=== PATIENT | male | born 1975 | race Caucasian/White ===

== ENCOUNTER → 2019-11-07 | Outpatient (CLI) | payer BC, OTHER | LOC: LAB 06:04 | PROVIDERS: ATTEND Emergency Medicine | DX: R06.02 Shortness of breath (principal); R50.9 Fever, unspecified; R05 Cough; R52 Pain, unspecified | CPT/HCPCS: 87430; 87635; 87804 ==

== ENCOUNTER → 2020-11-24 | Outpatient (CLI) | payer OTHER | LOC: LAB 06:02 | PROVIDERS: ATTEND Family Medicine | DX: Z01.89 Encounter for other specified special examinations (principal); W46.1XXA Contact with contaminated hypodermic needle, initial encounter | CPT/HCPCS: 36415; 86703 ==

== ENCOUNTER → 2020-11-24 | Outpatient (CLI) | payer OTHER | LOC: LABNPT 07:08 | DX: Z01.89 Encounter for other specified special examinations (principal) | CPT/HCPCS: 87522 ==

== ENCOUNTER 2021-08-16 14:55 | Emergency (ER) | payer OTHER ==
[~2021-08-16] VITALS: Ht 193 cm; Wt 88.4 kg
[2021-08-16 15:11] LABS: BASOPHILS # (AUTO) 0.1 10^3/uL (0.0-0.1); BASOPHILS % (AUTO) 1 % (0-10); EOSINOPHILS # (AUTO) 0.1 10^3/uL (0.0-0.3); EOSINOPHILS % (AUTO) 2 % (0-10); HEMATOCRIT 46 % (40-54); HEMOGLOBIN 16.1 g/dL (13.3-17.7); LYMPHOCYTES # (AUTO) 1.6 10^3/uL (1.0-4.0); LYMPHOCYTES % (AUTO) 28 % (12-44); MEAN CORPUSCULAR HEMOGLOBIN 31 pg (25-34); MEAN CORPUSCULAR HGB CONC 35 g/dL (32-36); MEAN CORPUSCULAR VOLUME 88 fL (80-99); MONOCYTES # (AUTO) 0.4 10^3/uL (0.0-1.0); MONOCYTES % (AUTO) 8 % (0-12); NEUTROPHILS # (AUTO) 3.4 10^3/uL (1.8-7.8); NEUTROPHILS % (AUTO) 61 % (42-75); PLATELET COUNT 259 10^3/uL (130-400); WHITE BLOOD COUNT 5.6 10^3/uL (4.3-11.0)
--- NOTE | 2021-08-16 15:11 | ED Cardiac General ---
History of Present Illness General Chief Complaint: Cardiac/General Problems Stated Complaint: AFIB Source: patient Exam Limitations: no limitations History of Present Illness Date Seen by Provider: Aug 16, 2021 Time Seen by Provider: 14:50 Initial Comments Patient to the ER by private conveyance chief complaint is having palpitations and feeling off for the past half hour. No chest pain, cough, shortness of breath, fevers or chills. He has had palpitations for decades. Few weeks ago he started Adderall for ADHD. He just took his dose about 2 hours ago and then ate fajitas and Diet Coke. No cardiac history. No valvular history. He had a sibling with stroke in her 30s. No diabetes, hypertension, hyperlipidemia, CHF, hypothyroidism etc. Allergies and Home Medications Allergies Coded Allergies: prochlorperazine (Verified Adverse Reaction, Unknown, 08/16/21) "loses mind" Patient Home Medication List Home Medication List Reviewed: Yes Review of Systems Review of Systems Constitutional: No chills, No diaphoresis EENTM: No Blurred Vision, No Double Vision Respiratory: Denies Cough, Denies Shortness of Air Cardiovascular: Denies Chest Pain, Denies Lightheadedness Gastrointestinal: Denies Constipated, Denies Diarrhea, Denies Nausea Genitourinary: Denies Discharge, Denies Drainage Musculoskeletal: No back pain, No joint pain All Other Systems Reviewed Negative Unless Noted: Yes Past Jykwysz-Brtcij-Wqhkod Hx Patient Social History Tobacco Use?: No Use of E-Cig and/or Vaping dev: No Substance use?: No Alcohol Use?: No Physical Exam Vital Signs Vital Signs - First Documented 08/16/21 14:55 Pulse 152 Resp 20 B/P (MAP) 133/83 (100) Pulse Ox 98 O2 Delivery Room Air Capillary Refill : Height, Weight, BMI Height: '" Weight: lbs. oz. kg; BMI Method: General Appearance: No Apparent Distress, WD/WN HEENT: PERRL/EOMI, Pharynx Normal, Moist Mucous Membranes Neck: Full Range of Motion, Normal Inspection Respiratory: Lungs Clear, Normal Breath Sounds, No Accessory Muscle Use, No Respiratory Distress Cardiovascular: Regular Rate, Rhythm, No Edema, Normal Peripheral Pulses, Tachycardia Gastrointestinal: Normal Bowel Sounds, Non Tender, Soft Neurologic/Psychiatric: Alert, Oriented x3, No Motor/Sensory Deficits Skin: Normal Color, Warm/Dry Progress/Results/Core Measures Results/Orders Lab Results Laboratory Tests Test 08/16/21 15:00 Range/Units White Blood Count 5.6 4.3-11.0 10^3/uL Red Blood Count 5.28 4.30-5.52 10^6/uL Hemoglobin 16.1 13.3-17.7 g/dL Hematocrit 46 40-54 % Mean Corpuscular Volume 88 80-99 fL Mean Corpuscular Hemoglobin 31 25-34 pg Mean Corpuscular Hemoglobin Concent 35 32-36 g/dL Red Cell Distribution Width 11.9 10.0-14.5 % Platelet Count 259 130-400 10^3/uL Mean Platelet Volume 10.0 9.0-12.2 fL Immature Granulocyte % (Auto) 0 % Neutrophils (%) (Auto) 61 42-75 % Lymphocytes (%) (Auto) 28 12-44 % Monocytes (%) (Auto) 8 0-12 % Eosinophils (%) (Auto) 2 0-10 % Basophils (%) (Auto) 1 0-10 % Neutrophils # (Auto) 3.4 1.8-7.8 10^3/uL Lymphocytes # (Auto) 1.6 1.0-4.0 10^3/uL Monocytes # (Auto) 0.4 0.0-1.0 10^3/uL Eosinophils # (Auto) 0.1 0.0-0.3 10^3/uL Basophils # (Auto) 0.1 0.0-0.1 10^3/uL Immature Granulocyte # (Auto) 0.0 0.0-0.1 10^3/uL Prothrombin Time 12.7 12.2-14.7 SEC INR Comment 0.9 0.8-1.4 Sodium Level 139 135-145 MMOL/L Potassium Level 3.8 3.6-5.0 MMOL/L Chloride Level 103 98-107 MMOL/L Carbon Dioxide Level 25 21-32 MMOL/L Anion Gap 11 5-14 MMOL/L Blood Urea Nitrogen 11 7-18 MG/DL Creatinine 1.06 0.60-1.30 MG/DL Estimat Glomerular Filtration Rate 76 BUN/Creatinine Ratio 10 Glucose Level 81 70-105 MG/DL Calcium Level 9.4 8.5-10.1 MG/DL Corrected Calcium 9.1 8.5-10.1 MG/DL Magnesium Level 2.1 1.6-2.4 MG/DL Total Bilirubin 0.6 0.1-1.0 MG/DL Aspartate Amino Transf (AST/SGOT) 23 5-34 U/L Alanine Aminotransferase (ALT/SGPT) 20 0-55 U/L Alkaline Phosphatase 77 40-136 U/L Troponin I < 0.028 <0.028 NG/ML Total Protein 8.0 6.4-8.2 GM/DL Albumin 4.4 3.2-4.5 GM/DL Thyroid Stimulating Hormone (TSH) 2.48 0.35-4.94 UIU/ML My Orders Orders - GARRICK LTITLE Ekg Tracing (08/16/21 15:03) Continuous Ekg Monitoring (08/16/21 15:03) Cbc With Automated Diff (08/16/21 15:03) Comprehensive Metabolic Panel (08/16/21 15:03) Troponin I [place] (08/16/21 15:03) Thyroid Stimulating Hormone (08/16/21 15:03) Ekg Tracing (08/16/21 15:03) Aspirin Chewable Tablet (Baby Aspirin Ch (08/16/21 15:15) Diltiazem Cd 24 Hr Capsule (Cardizem Cd (08/16/21 15:15) Magnesium (08/16/21 15:03) Protime With Inr (08/16/21 15:03) Chest 1 View, Ap/Pa Only (08/16/21 15:12) Medications Given in ED Current Medications Medications Dose Ordered Sig/Gilma Route Start Time Stop Time Status Last Admin Dose Admin Aspirin 324 mg ONCE ONCE PO 08/16/21 15:15 08/16/21 15:16 DC 08/16/21 15:16 324 MG Diltiazem HCl 240 mg ONCE ONCE PO 08/16/21 15:15 08/16/21 15:16 DC 08/16/21 15:16 240 MG Vital Signs/I&O 08/16/21 14:55 Pulse 152 Resp 20 B/P (MAP) 133/83 (100) Pulse Ox 98 O2 Delivery Room Air Progress Progress Note : Time: 15:10 Progress Note Patient spontaneously converted into a sinus rhythm while we are in the room as we got a second EKG. [id number] score of 0 points. We will put him on aspirin and give him some Cardizem to 40 mg now and 120 mg daily and have him follow-up with cardiology of his choice. Initial ECG Impression Date: Aug 16, 2021 Initial ECG Impression Time: 14:56 Initial ECG Rate: 148 Initial ECG Rhythm: A Fib/Flutter Initial ECG Intervals: QT (489) Initial ECG Impression: Normal, Nonspecific Changes Initial ECG Comparisson: No Previous ECG Available Comment Atrial flutter with rapid ventricular response. No clinically relevant ST changes EKG : EKG Time: 14:58 Rate: 77 Rhythm: Normal Sinus Intervals: Normal ECG Comparisson: Changed ECG Impression: Normal Comment Normal sinus rhythm without clinically relevant ST elevation or depression. Diagnostic Imaging Diagonstic Imaging: Xray Plain Films/CT/US/NM/MRI: chest Comments [facility] [place], [place] NAME: [facility] REC#: [id number] PT STATUS: REG ER : 1975 PHYSICIAN: GARRICK LITTLE MD ADMIT DATE: 08/16/21/ER Signed Date of Exam:08/16/21 CHEST 1 VIEW, AP/PA ONLY INDICATION: Palpitations. COMPARISON: None available. FINDINGS: The lungs appear clear without focal infiltrate or consolidation. There are no findings of an effusion. There is no evidence of a pneumothorax. Heart size and mediastinal contours appear appropriate. Pulmonary vascularity appears within normal limits. There is no acute or suspicious osseous abnormality demonstrated. IMPRESSION: No radiographic evidence of an acute cardiopulmonary process. Dictated by: Dictated on workstation # [id number] Dict: 08/16/21 1527 Trans: 08/16/21 1528 [facility] [id number] Interpreted by: SHA AMEZQUITA MD Electronically signed by: SHA AMEZQUITA MD 08/16/21 1528 Reviewed: Reviewed by Me Departure Impression Primary Impression: Atrial fibrillation with rapid ventricular response Disposition: 01 HOME, SELF-CARE Condition: Stable Departure-Patient Inst. Decision time for Depature: 15:58 Referrals: RODNEY ALLEN MD (PCP/Family) Primary Care Physician CHELSEA MAHONEY MD Patient Instructions: Atrial Fibrillation (DC) Add. Discharge Instructions: Aspirin 81 mg daily. Follow-up in the next 1 to 2 weeks with software sales consultant of your choice. Drink plenty of fluids. Discontinue amphetamines. Return to the ER for significantly worsening symptoms such as chest pain. Cardizem 120 mg daily as needed for rapid ventricular response. All discharge instructions reviewed with patient and/or family. Voiced understanding. Scripts Diltiazem HCl (Cardizem Cd) 120 Mg Cap.er.24h 120 MG PO DAILY for 30 Days, #30 CAP 0 Refills Prov: GARRICK LITTLE 08/16/21 Aspirin (Aspirin) 81 Mg Tab.chew 81 MG PO DAILY for 90 Days, #90 TAB 0 Refills Prov: GARRICK LITTLE 08/16/21 Copy Copies To 1: CHELSEA MAHONEY MD, TITUS J Aug 16, 2021 15:11
[2021-08-16] MEDS ORDERED: ASPIRIN 81 MG CHEW (CHILDREN'S ASA) PO ONE (15:15)
[2021-08-16 15:17] LABS: ALBUMIN 4.4 GM/DL (3.2-4.5)
[2021-08-16 15:18] LABS: CHLORIDE 103 MMOL/L (98-107); POTASSIUM 3.8 MMOL/L (3.6-5.0); SODIUM 139 MMOL/L (135-145)
[2021-08-16 15:19] LABS: CALCIUM 9.4 MG/DL (8.5-10.1)
[2021-08-16 15:20] LABS: GLUCOSE 81 MG/DL (70-105)
[2021-08-16 15:21] LABS: CARBON DIOXIDE 25 MMOL/L (21-32)
[2021-08-16 15:22] LABS: BILIRUBIN,TOTAL 0.6 MG/DL (0.1-1.0)
[2021-08-16 15:24] LABS: ALKALINE PHOSPHATASE 77 U/L (40-136); CREATININE SERUM 1.06 MG/DL (0.60-1.30); GFR ESTIMATED 76
[2021-08-16 15:25] LABS: BUN/CREATININE RATIO 10
[2021-08-16 15:26] LABS: MAGNESIUM 2.1 MG/DL (1.6-2.4)
[2021-08-16 15:27] LABS: ALANINE AMINOTRANSFERASE 20 U/L (0-55)
[2021-08-16 15:28] LABS: INR 0.9 (0.8-1.4); PROTHROMBIN TIME PATIENT 12.7 SEC (12.2-14.7)
--- NOTE | 2021-08-16 15:29 | Diagnostic Imaging Report ---
INDICATION: Palpitations. COMPARISON: None available. FINDINGS: The lungs appear clear without focal infiltrate or consolidation. There are no findings of an effusion. There is no evidence of a pneumothorax. Heart size and mediastinal contours appear appropriate. Pulmonary vascularity appears within normal limits. There is no acute or suspicious osseous abnormality demonstrated. IMPRESSION: No radiographic evidence of an acute cardiopulmonary process. Dictated by: Dictated on workstation # [id number]
[2021-08-16] MEDS ORDERED: ASPI-999 PO (16:01)
[2021-08-16] MEDS ORDERED: DILT120C82 PO (16:01)
[2021-08-16 16:23] VITALS: BP 133/87
== END 2021-08-16 16:24 | disposition home or self-care (01) ==
LOC: EDUNIT# 14:56 → ER 14:58
DX: I48.91 Unspecified atrial fibrillation (principal); F90.9 Attention-deficit hyperactivity disorder, unspecified type; Z79.899 Other long term (current) drug therapy
CPT/HCPCS: 36415; 71045; 80053; 83735; 84443; 84484; 85025; 85610; 93005

== ENCOUNTER → 2021-09-14 | Outpatient (CLI) | payer OTHER ==
[~2021-09-14] MED LIST: ASPI-999 PO; DILT120C82 PO
== END ==
LOC: LAB 00:03
PROVIDERS: ATTEND Family Medicine
DX: R51.9 Headache, unspecified (principal); R11.0 Nausea
CPT/HCPCS: 87635; 87804

== ENCOUNTER → 2021-11-08 | Outpatient (CLI) | payer OTHER | LOC: CARD 10:45 | PROVIDERS: ATTEND Internal Medicine Cardiovascular Disease | DX: I10 Essential (primary) hypertension (principal); I25.110 Atherosclerotic heart disease of native coronary artery with unstable angina pectoris; I48.92 Unspecified atrial flutter | CPT/HCPCS: 93306 ==

== ENCOUNTER → 2021-11-08 | Outpatient (CLI) | payer OTHER ==
[2021-11-08 10:47] LABS: CHOLESTEROL 150 MG/DL (< 200); HDL CHOLESTEROL 43 MG/DL (40-60); TRIGLYCERIDES 75 MG/DL (<150); VLDL CHOLESTEROL 15 MG/DL (5-40)
== END ==
LOC: LAB 10:03
PROVIDERS: ATTEND Internal Medicine Cardiovascular Disease
DX: E78.2 Mixed hyperlipidemia (principal)
CPT/HCPCS: 36415; 80061

== ENCOUNTER → 2021-11-29 | Outpatient (CLI) | payer OTHER ==
--- NOTE | 2021-11-29 07:30 | Diagnostic Imaging Report ---
HAND, LEFT, 3 VIEWS INDICATION: Left hand injury COMPARISON: None available. TECHNIQUE: 3 views of left hand FINDINGS: No fracture. Alignment is normal. No osseous erosions. No radiopaque foreign body. No features of avascular necrosis in the lunate. No cartilage calcifications. IMPRESSION: No acute osseous abnormality in the left hand. Dictated by: Dictated on workstation # [id number]
== END ==
LOC: RAD 06:16
PROVIDERS: ATTEND Emergency Medicine
DX: S69.92XA Unspecified injury of left wrist, hand and finger(s), initial encounter (principal); X58.XXXA Exposure to other specified factors, initial encounter
CPT/HCPCS: 73130

== ENCOUNTER → 2021-12-04 | Outpatient (CLI) | payer OTHER ==
[~2021-12-04] VITALS: Ht 193 cm; Wt 88.0 kg
[~2021-12-04] MED LIST changes: +CATHETER FLUSH 10 ML SYR IVP PRN
[2021-12-04 09:28] VITALS: BP 132/90
[2021-12-04 09:38] VITALS: BP 160/79
--- NOTE | 2021-12-04 12:40 | Cardiology Stress Test Report ---
Stress Test Report Date of Procedure/Referring: Date of Procedure: Dec 04, 2021 PCP Chelsea Dover MD Admitting Physician Laura Fajardo MD Indications: Palp Baseline Heart Rate: 65 Baseline Blood Pressure: Blood Pressure Systolic: 160 Blood Pressure Diastolic: 79 Vital Signs Date Time Temp Pulse Resp B/P (MAP) Pulse Ox O2 Delivery O2 Flow Rate FiO2 12/04/21 09:28 81 17 132/90 (104) Baseline Vital Signs Vital Signs Date Time Temp Pulse Resp B/P (MAP) Pulse Ox O2 Delivery O2 Flow Rate FiO2 12/04/21 09:28 81 17 132/90 (104) Baseline EKG: Baseline EKG: NSR Summary: After explaining the procedure and details to the patient, he signed the consent and was brought to the stress nuclear laboratory. Patient exercised on standard Tj protocol, EKG, heart rate and blood pressure were monitored continuously, resting and stress doses of radio tracer were injected, imaging was acquired and reviewed in the short axis, horizontal long axis and vertical long axis views Patient was able to exercise for a total of 11 minutes on Tj protocol, METs 12.1 Maximum heart rate 170 Maximum blood pressure 160/79 Stress EKG, Minimal nondiagnostic changes Recovery EKG, Return to baseline TID: 0.88 SSS: 1 SDS: 1 EF: 56 Conclusion: 1. Excellent exercise tolerance for a total of 11 minutes on a standard Tj protocol, 12.1 METS achieving 96% of maximal expected heart rate 2. Appropriate heart rate and blood pressure response to exercise return to baseline during recovery 3. No arrhythmia was detected during stress test 4. Minimal EKG changes with exercise return to baseline during recovery 5. No significant ischemia or infarction on SPECT images 6. Normal left ventricular size, ejection fraction 56% CHELSEA DOVER MD Dec 04, 2021 12:40
== END ==
LOC: CARD 07:30
PROVIDERS: ATTEND Internal Medicine Cardiovascular Disease
DX: I25.10 Atherosclerotic heart disease of native coronary artery without angina pectoris (principal); I10 Essential (primary) hypertension
CPT/HCPCS: 78452; 93017; A9502

== ENCOUNTER 2022-08-06 11:22 | Outpatient (CLI) | payer OTHER ==
[~2022-08-06] VITALS: Ht 193 cm; Wt 88.6 kg
[~2022-08-06 11:22] MED LIST changes: -CATHETER FLUSH 10 ML SYR IVP PRN
[2022-08-06] MEDS ORDERED: AMPH15CA5 PO (11:35)
[2022-08-06] MEDS ORDERED: DEXT5TAB19 PO (11:35)
[2022-08-06] MEDS ORDERED: FLUT9.9S NS (11:35)
== END 2022-08-06 11:36 | disposition home or self-care (01) ==
LOC: PREOP 11:22
PROVIDERS: ATTEND Surgery
DX: Z01.818 Encounter for other preprocedural examination (principal)

== ENCOUNTER 2022-08-15 11:17 | Day surgery (SDC) | payer OTHER ==
[~2022-08-15] VITALS: Ht 193 cm; Wt 88.6 kg
[~2022-08-15 11:17] MED LIST changes: +AMPH15CA5 PO; +DEXT5TAB19 PO; +FLUT9.9S NS
[2022-08-15] MEDS ORDERED: LACTATED RINGERS 1,000 ML IV STA (11:20)
[2022-08-15 11:25] VITALS: BP 131/86
[2022-08-15] MEDS ORDERED: PROPOFOL INJECTION 0 ML IV ONE (11:44)
[2022-08-15] MEDS ORDERED: PROPOFOL INJECTION 50 ML IV ONE (12:28)
[2022-08-15] MEDS ORDERED: MIDAZOLAM 2 MG/2 ML (VERSED) VIAL ONE (12:28)
[2022-08-15 13:05] VITALS: BP 101/65
--- NOTE | 2022-08-15 13:07 | Discharge Inst-Simple/Standard ---
Discharge Inst-Standard Patient Instructions/Follow Up Plan of Care/Instructions/FU: Please follow up with Dr. Tubbs in 5 years. If any issues before then, please be seen at that time. Activity as Tolerated: Yes Discharge Diet: Regular Diet VALERIA TUBBS DO Aug 15, 2022 13:07
[2022-08-15 13:10] VITALS: BP 120/88
[2022-08-15 13:15] VITALS: BP 119/76
[2022-08-15 13:30] VITALS: BP 126/86
--- NOTE | 2022-08-15 14:00 | Anesthesia-General Post-Op ---
MAC Patient Condition Mental Status/LOC: Same as Preop Cardiovascular: Satisfactory Nausea/Vomiting: Absent Respiratory: Satisfactory Pain: Controlled Complications: Absent Post Op Complications Complications None Follow Up Care/Instructions Patient Instructions None needed. Anesthesiology Discharge Order Discharge Order Patient is doing well, no complaints, stable vital signs, no apparent adverse anesthesia problems. No complications reported per nursing. KRISTY JEAN CRNA Aug 15, 2022 14:00
--- NOTE | 2022-08-16 01:00 | OPERATIVE REPORT ---
DATE OF SERVICE: 08/15/2022 PREOPERATIVE DIAGNOSES: History of rectal polyp, family history of colon cancer. POSTOPERATIVE DIAGNOSIS: Normal colon. PROCEDURE: Colonoscopy. SURGEON: Valeria Tubbs DO ANESTHESIA: Per PATIENT CARE. ESTIMATED BLOOD LOSS: None. COMPLICATIONS: None. INDICATIONS: The patient is a 47-year-old male, needing colonoscopy, history of colon polyps and family history. He understands the risks and benefits of the procedure and wishes to proceed. Consent was signed and in chart. DESCRIPTION OF PROCEDURE: The patient was taken to endoscopy suite, placed in left lateral recumbent position. Timeout was performed. Digital rectal exam was performed. No palpable polyps, masses, ulcerations. Scope was inserted into the rectum and advanced all the way to the cecum with minimal difficulty. Prep was adequate. Scope was then slowly retracted back. No polyps, masses, ulcerations in cecum, ascending, transverse, descending and sigmoid colon. Once in the rectum, scope was retroflexed, noting no other pathology. Scope was returned to its normal position and slowly withdrawn until completely removed. The patient tolerated the procedure well without any complications and taken to recovery room in stable condition. RECOMMENDATIONS: The patient will need repeat colonoscopy in 5 years, any issues before that be seen at that time. Job ID: [id number] DocumentID: [id number] Dictated Date: 08/15/2022 15:17:28 Consumer Loan Officer Date: 08/16/2022 00:58:00 Dictated By: VALERIA TUBBS DO
== END 2022-08-15 13:50 | disposition home or self-care (01) ==
LOC: ENDO 11:17
PROVIDERS: ATTEND Surgery
DX: Z12.11 Encounter for screening for malignant neoplasm of colon (principal); Z80.0 Family history of malignant neoplasm of digestive organs; Z87.19 Personal history of other diseases of the digestive system

== ENCOUNTER → 2022-09-03 | Outpatient (CLI) | payer OTHER | LOC: LAB FS 07:12 | PROVIDERS: ATTEND Family Medicine | DX: Z20.822 Contact with and (suspected) exposure to COVID-19 (principal) | CPT/HCPCS: 87430; 87804 ==